=== PATIENT | male | born 1990 | race Caucasian/White ===

== ENCOUNTER 2022-01-29 21:19 | Emergency (ER) | payer SELFPAY ==
[2022-01-29] MEDS ORDERED: Ondansetron 4 MG/2 ML SDV ONE (21:23)
[2022-01-29] MEDS ORDERED: Ondansetron 4 MG/2 ML SDV IVPUSH ONE (21:34)
[2022-01-29] MEDS ORDERED: Naloxone 0.4 MG/ML SDV IVPUSH ONE (21:37)
[2022-01-29] MEDS ORDERED: Sodium Chloride 0.9% 1,000 ML IV SCH (21:45)
[2022-01-29 21:57] LABS: BLOOD UREA NITROGEN,BUN 13 mg/dL (7.0-18.0); CHLORIDE,CL 104 mmol/L (98-107); GLUCOSE RANDOM 216 mg/dL (74-106); POTASSIUM,K 3.4 mmol/L (3.5-5.1); SODIUM,NA 141 mmol/L (136-148)
== END 2022-01-29 22:13 | disposition left against medical advice (07) ==
LOC: EDBD 21:19 → MW.ED 21:19
DX: T40.411A Poisoning by fentanyl or fentanyl analogs, accidental (unintentional), initial encounter (principal); K44.9 Diaphragmatic hernia without obstruction or gangrene
CPT/HCPCS: 36415; 71045; 80053; 83735; 84484; 85025; 93005; 96361; 96374; 96375; 99291; J2310; J2405; J7030